=== PATIENT | male | born 1990 | race African-American/Black ===

== ENCOUNTER 2022-02-06 13:23 | Inpatient (IN) | payer OTHER ==
[2022-02-06 13:50] VITALS: BMI 29.7
[2022-02-06] MEDS ORDERED: ONDANSETRON *ODT* 4 MG TABLET SL PRN (14:58)
[2022-02-06] MEDS ORDERED: DICYCLOMINE HCL 10 MG CAPSULE PO PRN (14:58)
[2022-02-06] MEDS ORDERED: ACETAMINOPHEN 325 MG TABLET (FP) PO PRN ×2 (14:58)
[2022-02-06] MEDS ORDERED: LORazepam 1 MG TABLET PO PRN (14:58)
[2022-02-06] MEDS ORDERED: BISMUTH SUBSALICYLATE 524 MG/30 ML PO PRN (14:58)
[2022-02-06] MEDS ORDERED: IBUPROFEN 400 MG TABLET (FP) PO PRN (14:58)
[2022-02-06] MEDS ORDERED: MAGNESIUM CITRATE 300 ML BOTTLE PO PRN (14:58)
[2022-02-06] MEDS ORDERED: MAG HYDROX/AL HYDROX/SIMETH 30 ML UNIT-DOSE CUP PO PRN (14:58)
[2022-02-06] MEDS ORDERED: METHOCARBAMOL 500 MG TABLET PO PRN (14:58)
[2022-02-06] MEDS ORDERED: IBUPROFEN 600 MG TABLET (FP) PO PRN (14:58)
[2022-02-06] MEDS ORDERED: MAGNESIUM HYDROX 2400MG/30ML ORAL SUSPENSION 30 ML CUP PO PRN (14:58)
[2022-02-06] MEDS ORDERED: LOPERAMIDE HCL 2 MG CAPSULE PO PRN (14:58)
[2022-02-06] MEDS ORDERED: BENZOCAINE/MENTHOL (CHLORASEPTIC ) LOZENGE MM PRN (14:58)
[2022-02-06] MEDS: LORazepam 2 MG TABLET PO SCH ×2 (17:41→23:51)
[2022-02-06] MEDS: PRENATAL VITAMINS W/ FOLIC ACID TABLET (FP) PO SCH (17:42)
[2022-02-06] MEDS: hydrOXYzine PAMOATE 25 MG CAPSULE (FP) PO SCH ×2 (17:42→23:54)
[2022-02-06] MEDS: MELATONIN 5 MG TABLETS PO SCH (23:52)
[2022-02-06] MEDS: THIAMINE HCL 100 MG TABLET (FP) PO SCH (23:53)
[2022-02-07] MEDS: LORazepam 2 MG TABLET PO SCH ×4 (07:42→17:58)
[2022-02-07] MEDS: hydrOXYzine PAMOATE 25 MG CAPSULE (FP) PO SCH ×5 (07:42→23:31)
[2022-02-07] MEDS: PRENATAL VITAMINS W/ FOLIC ACID TABLET (FP) PO SCH (10:30)
[2022-02-07 11:07] LABS: HEMATOCRIT 40.8 % (35.4-49); HEMOGLOBIN 13.4 GM/dL (11.7-16.9); MCH 28.6 pg (25.7-33.7); MCHC 32.8 g/dl (32.0-35.9); MEAN CELL VOLUME 87.1 fl (80-96); MEAN PLT VOLUME 8.4 fl (7.5-11.1); PLATELET COUNT 246 10^3/uL (134-434); RBC 4.69 M/mm3 (4.00-5.60); RDW 14.3 % (11.9-15.9); WHITE BLOOD COUNT 7.4 K/mm3 (4.0-10.0)
[2022-02-07 11:21] LABS: ALBUMIN 3.4 g/dl (3.4-5.0)
[2022-02-07 11:24] LABS: CREATININE 0.8 mg/dL (0.55-1.3)
[2022-02-07 11:26] LABS: BILIRUBIN,TOTAL 1.4 mg/dL (0.2-1); TOT PROT 6.1 g/dl (6.4-8.2)
[2022-02-07] MEDS: NICOTINE 10 MG CARTRIDGE (INHALER) IH PRN (18:20)
[2022-02-07] MEDS ORDERED: MIRTAZAPINE 15 MG TABLET (FP) PO SCH (22:00)
[2022-02-07] MEDS: MELATONIN 5 MG TABLETS PO SCH (23:30)
[2022-02-07] MEDS: THIAMINE HCL 100 MG TABLET (FP) PO SCH (23:31)
[2022-02-08] MEDS: LORazepam 2 MG TABLET PO SCH (00:02)
[2022-02-08] MEDS: hydrOXYzine PAMOATE 25 MG CAPSULE (FP) PO SCH ×3 (05:30→15:03)
[2022-02-08] MEDS: LORazepam 1 MG TABLET PO SCH ×2 (05:30→10:27)
[2022-02-08] MEDS: PRENATAL VITAMINS W/ FOLIC ACID TABLET (FP) PO SCH (10:28)
[2022-02-08] MEDS: NICOTINE 10 MG CARTRIDGE (INHALER) IH PRN (10:29)
[2022-02-08 13:11] VITALS: BP 131/85; PULSE 79; TEMP 98.4
[2022-02-09] MEDS ORDERED: LORazepam 0.5 MG TABLET PO PRN
[2022-02-09] MEDS ORDERED: LORazepam 0.5 MG TABLET PO SCH (05:00)
[2022-02-10] MEDS ORDERED: LORazepam 0.5 MG TABLET PO ONE (05:00)
== END 2022-02-08 14:40 | disposition left against medical advice (07) | DRG 770 ==
LOC: YASAS 13:23 → Y3N 15:53
PROVIDERS: ADMIT Allergy & Immunology; ATTEND Surgery
PROC: HZ2ZZZZ Detoxification Services for Substance Abuse Treatment (ICD-10-PCS; principal; 2022-02-06)
DX: F10.230 Alcohol dependence with withdrawal, uncomplicated (principal); F17.210 Nicotine dependence, cigarettes, uncomplicated; F19.24 Other psychoactive substance dependence with psychoactive substance-induced mood disorder; G62.9 Polyneuropathy, unspecified; G47.00 Insomnia, unspecified; Z28.310 Unvaccinated for COVID-19
CPT/HCPCS: 36415; 80053; 85027; 86780; 87811; 93005; 93010; C9803-CS; U0003; U0005